=== PATIENT | male | born 1970 | race Caucasian/White ===

== ENCOUNTER → 2017-07-17 | Outpatient (CLI) | payer OTHER ==
[~2017-07-17] MED LIST: /AUGM875TA OR; /ONDA4TA SL; PERC5TAB8 OR
--- NOTE | 2017-07-17 15:37 | REP ---
Clinical: Tendonitis . Technique: Internal rotation, external rotation, and Y view left shoulder . Findings: No acute fracture or dislocation. The acromioclavicular and glenohumeral joints are intact. Minimal cortical irregularity at the acromion process is suggested. No significant inferior osteophyte or periarticular calcifications are identified. Sub acromial space is normal. Surrounding soft tissues are unremarkable. Impression: Mild cortical irregularities at the acromion process. Otherwise normal, age-appropriate left shoulder radiographs. Signed by Michael Garrett MD 07/17/2017 03:28 P
== END ==
LOC: M WUC 15:18
PROVIDERS: ATTEND Family Medicine
DX: M75.82 Other shoulder lesions, left shoulder (principal)

== ENCOUNTER → 2018-08-06 | Outpatient (CLI) | payer OTHER | LOC: M ADAMS 16:34 | DX: M17.11 Unilateral primary osteoarthritis, right knee (principal); M16.11 Unilateral primary osteoarthritis, right hip | CPT/HCPCS: 73502 ==

== ENCOUNTER → 2019-07-21 | Outpatient (REF) | payer OTHER ==
[~2019-07-21] MED LIST changes: -/ONDA4TA SL; +ONDA-1 SL
[2019-07-21 20:29] LABS: HEMATOCRIT 44.1 % (42.0-52.0); HEMOGLOBIN 14.9 g/dl (13.5-17.5); MEAN CORPUSCULAR HEMOGLOBIN 31.5 pg (27.0-33.0); MEAN CORPUSCULAR HGB CONC 33.8 g/dl (32.0-36.5); MEAN CORPUSCULAR VOLUME 93.2 fl (80.0-96.0); PLATELET COUNT, AUTOMATED 157 10^3/uL (150-450); RED BLOOD COUNT 4.73 10^6/uL (4.30-6.10); WHITE BLOOD COUNT 5.8 10^3/uL (4.0-10.0)
[2019-07-21 20:37] LABS: ALBUMIN 4.5 GM/DL (3.2-5.2); ALT/SGPT 51 U/L (12-78); BILIRUBIN,TOTAL 0.6 MG/DL (0.2-1.0); BLOOD UREA NITROGEN 27 MG/DL (7-18); CALCIUM LEVEL 9.4 MG/DL (8.5-10.1); CARBON DIOXIDE LEVEL 25 MEQ/L (21-32); CHLORIDE LEVEL 109 MEQ/L (98-107); CHOLESTEROL LEVEL 174 MG/DL (<200); CHOLESTEROL RISK RATIO 4.833 (<5); CREATININE FOR GFR 0.93 MG/DL (0.70-1.30); GLOMERULAR FILTRATION RATE > 60.0 (>56); GLUCOSE, FASTING 93 MG/DL (70-100); HDL CHOLESTEROL 36 MG/DL (>40); LDL CHOLESTEROL 71 MG/DL (<100); NON-HDL-C 138 MG/DL; POTASSIUM SERUM 4.5 MEQ/L (3.5-5.1); SODIUM LEVEL 141 MEQ/L (136-145); TOTAL PROTEIN 7.2 GM/DL (6.4-8.2); TRIGLYCERIDES LEVEL 335 MG/DL (<150)
[2019-07-27 10:14] LABS: DRVV SCREEN 36.3 SEC
[2019-07-27 10:18] LABS: PTT LUPUS TYPE ANTICOAG SCREEN 0.9 (0-1.2)
[2019-07-28 14:19] LABS: ANTI THROMBIN 3 ANTIGEN IMMUNO 89 % (72-124); ANTI THROMBIN 3 FUNCT ACTIVITY 92 % (75-135); HOMOCYST(E)INE SERUM 9.2 umol/L (0.0-15.0); PROTEIN C FUNCTIONAL ACTIVITY 122 % (73-180); PROTEIN S FUNCTIONAL ACTIVITY 88 % (63-140)
== END ==
LOC: M SFHCADAM 12:18
PROVIDERS: ATTEND Family Medicine
DX: Z12.5 Encounter for screening for malignant neoplasm of prostate (principal); Z82.49 Family history of ischemic heart disease and other diseases of the circulatory system; E78.5 Hyperlipidemia, unspecified
CPT/HCPCS: 80053; 80061; 81240; 83090; 85027; 85300; 85301; 85303; 85305; 85730; G0103

== ENCOUNTER → 2020-03-30 | Outpatient (REF) | payer OTHER ==
[~2020-03-30] MED LIST changes: +ASPI81TA85 PO
[2020-03-30 13:59] LABS: APPEARANCE, URINE CLEAR (CLEAR); BACTERIA, URINE AUTO NEGATIVE (NEGATIVE); BILIRUBIN, URINE AUTO NEGATIVE (NEGATIVE); BLOOD, URINE BLOOD NEGATIVE (NEGATIVE); COLOR, URINE YELLOW (YELLOW); GLUCOSE, URINE (UA) AUTO NEGATIVE (NEGATIVE); KETONE, URINE AUTO NEGATIVE (NEGATIVE); LEUKOCYTE ESTERASE, URINE AUTO NEGATIVE (NEGATIVE); MUCUS, URINE SMALL (NEGATIVE); NITRITE, URINE AUTO NEGATIVE (NEGATIVE); PROTEIN, URINE AUTO NEGATIVE (NEGATIVE); RBC, URINE AUTO 0 /HPF (0-3); SPECIFIC GRAVITY URINE AUTO 1.028 (1.002-1.035); SQUAMOUS EPITHELIAL CELL UR AU 0 /HPF (0-6); UROBILINOGEN, URINE AUTO 0.2 mg/dL (0.0-2.0); WBC, URINE AUTO 0 /HPF (0-3)
[2020-03-30 14:01] LABS: BASO # 0.1 10^3/uL (0.0-0.2); BASO % 0.9 % (0.0-1.0); EOS # 0.3 10^3/uL (0.0-0.5); EOS % 5.6 % (0.0-3.0); HEMATOCRIT 44.9 % (42.0-52.0); HEMOGLOBIN 15.4 g/dl (13.5-17.5); LYMPH # 2.2 10^3/uL (1.5-5.0); MEAN CORPUSCULAR HEMOGLOBIN 31.9 pg (27.0-33.0); MEAN CORPUSCULAR HGB CONC 34.3 g/dl (32.0-36.5); MONO # 0.5 10^3/uL (0.0-0.8); MONO % 8.9 % (0.0-5.0); NEUTROPHILS # 2.7 10^3/uL (1.5-8.5); NEUTROPHILS % 46.1 % (36.0-66.0); PLATELET COUNT, AUTOMATED 153 10^3/uL (150-450); RED BLOOD COUNT 4.83 10^6/uL (4.30-6.10); WHITE BLOOD COUNT 5.9 10^3/uL (4.0-10.0)
[2020-03-30 14:11] LABS: PROTHROMBIN TIME 12.9 SECONDS (11.8-14.0)
[2020-03-30 14:12] LABS: PARTIAL THROMBOPLASTIN TIME 30.9 SECONDS (25.0-38.4)
[2020-03-30 14:16] LABS: HEMOGLOBIN A1c 6.4 %
[2020-03-30 14:34] LABS: ALBUMIN 4.1 GM/DL (3.2-5.2); ALT/SGPT 62 U/L (12-78); BILIRUBIN,TOTAL 0.7 MG/DL (0.2-1.0); BLOOD UREA NITROGEN 27 MG/DL (7-18); CALCIUM LEVEL 9.2 MG/DL (8.5-10.1); CARBON DIOXIDE LEVEL 27 MEQ/L (21-32); CHLORIDE LEVEL 105 MEQ/L (98-107); CREATININE FOR GFR 0.91 MG/DL (0.70-1.30); FERRITIN 297 NG/ML (26-388); FREE T4 0.89 NG/DL (0.76-1.46); GLOMERULAR FILTRATION RATE > 60.0 (>56); GLUCOSE, FASTING 99 MG/DL (70-100); IRON (FE) 109 UG/DL (65-175); PERCENT SATURATION 36.9 % (19.7-50.0); POTASSIUM SERUM 4.8 MEQ/L (3.5-5.1); SODIUM LEVEL 141 MEQ/L (136-145); TOTAL IRON BINDING CAPACITY 295 UG/DL (250-450); TOTAL PROTEIN 7.4 GM/DL (6.4-8.2)
== END ==
LOC: M SFHCADAM 10:40
PROVIDERS: ATTEND Family Medicine
DX: Z01.818 Encounter for other preprocedural examination (principal)

== ENCOUNTER 2020-06-27 05:37 | Day surgery (SDC) | payer OTHER ==
[~2020-06-27] VITALS: Ht 185.4 cm; Wt 100.6 kg
[~2020-06-27 05:37] MED LIST changes: -ASPI81TA85 PO; +ASPI81TA86 PO
[2020-06-27] MEDS ORDERED: ZYRTTAB8 PO (05:49)
[2020-06-27] MEDS ORDERED: ONDANSETRON 4MG/2ML VIAL IV ONE (06:30)
[2020-06-27 06:34] LABS: BASO # 0.1 10^3/uL (0.0-0.2); BASO % 0.8 % (0.0-1.0); EOS # 0.2 10^3/uL (0.0-0.5); EOS % 1.9 % (0.0-3.0); HEMATOCRIT 46.9 % (42.0-52.0); HEMOGLOBIN 15.9 g/dl (13.5-17.5); LYMPH # 2.2 10^3/uL (1.5-5.0); LYMPH % 27.8 % (24.0-44.0); MEAN CORPUSCULAR HEMOGLOBIN 31.1 pg (27.0-33.0); MEAN CORPUSCULAR HGB CONC 33.9 g/dl (32.0-36.5); MEAN CORPUSCULAR VOLUME 91.6 fl (80.0-96.0); MONO # 0.6 10^3/uL (0.0-0.8); MONO % 7.9 % (0.0-5.0); NEUTROPHILS # 4.7 10^3/uL (1.5-8.5); NEUTROPHILS % 61.1 % (36.0-66.0); PLATELET COUNT, AUTOMATED 159 10^3/uL (150-450); RED BLOOD COUNT 5.12 10^6/uL (4.30-6.10); WHITE BLOOD COUNT 7.8 10^3/uL (4.0-10.0)
[2020-06-27] MEDS ORDERED: MORPHINE 4 MG/ML 1ML VIAL/SYRINGE (J2270) IV ONE ×2 (06:45→09:15)
[2020-06-27 06:46] LABS: INR 0.96
[2020-06-27] MEDS ORDERED: ISOVUE-370 76% 100ML VIAL As Ordered ONE (06:46)
[2020-06-27 06:47] LABS: PARTIAL THROMBOPLASTIN TIME 29.3 SECONDS (25.0-38.4)
[2020-06-27 07:14] LABS: ALBUMIN 4.1 GM/DL (3.2-5.2); ALT/SGPT 84 U/L (12-78); BILIRUBIN,DIRECT 0.1 MG/DL (0.0-0.2); BILIRUBIN,TOTAL 0.5 MG/DL (0.2-1.0); BLOOD UREA NITROGEN 20 MG/DL (7-18); CALCIUM LEVEL 9.2 MG/DL (8.5-10.1); CARBON DIOXIDE LEVEL 24 MEQ/L (21-32); CHLORIDE LEVEL 105 MEQ/L (98-107); CK-MB VALUE MASS 1.5 NG/ML (<3.6); CPK CREATINE PHOSPHOKINASE 205 U/L (39-308); CREATININE FOR GFR 1.09 MG/DL (0.70-1.30); GLOMERULAR FILTRATION RATE > 60.0 (>56); GLUCOSE, FASTING 171 MG/DL (70-100); LIPASE 88 U/L (73-393); MB/CK RELATIVE INDEX 0.73 (< OR =4); SODIUM LEVEL 136 MEQ/L (136-145); TOTAL PROTEIN 7.8 GM/DL (6.4-8.2); TROPONIN I < 0.02 NG/ML (< 0.10)
--- NOTE | 2020-06-27 07:53 | REPVR ---
PROCEDURE INFORMATION: Exam: CT Abdomen And Pelvis With Contrast Exam date and time: 06/27/2020 6:37 AM Age: 50 years old Clinical indication: Abdominal pain; Other: Severe; Additional info: Severe abd pain with n/v TECHNIQUE: Imaging protocol: Computed tomography of the abdomen and pelvis with intravenous contrast. Radiation optimization: All CT scans at this facility use at least one of these dose optimization techniques: automated exposure control; mA and/or kV adjustment per patient size (includes targeted exams where dose is matched to clinical indication); or iterative reconstruction. Contrast material: ISO; Contrast volume: 100 ml; Contrast route: INTRAVENOUS (IV); COMPARISON: DX HIP COMPLETE (AP/LAT) 08/06/2018 4:29 PM FINDINGS: Lungs: There is bilateral posterior dependent lung atelectasis. Mediastinal space: The visualized inferior mediastinum is grossly unremarkable. Liver: The liver is enlarged measuring up to 19.1 cm in mid clavicular line and is severely hypoattenuated. There is mild increased density in the gallbladder fossa. There is a small density in the anterior inferior right hepatic lobe on axial image 60 measuring around 1.1 centimetres. Gallbladder and bile ducts: The gallbladder is moderately to significantly distended measuring up to 8.9 x 5.2 centimetres. There is small amount of layering sludge or small stones in the gallbladder. There is no biliary ductal dilatation. Pancreas: Normal. No ductal dilation. Spleen: Normal. No splenomegaly. Adrenals: Normal. No mass. Kidneys and ureters: Normal. No hydronephrosis. Stomach and bowel: Unremarkable. No obstruction. No mucosal thickening. Appendix: No evidence of appendicitis. Intraperitoneal space: Unremarkable. No free air. No significant fluid collection. Vasculature: Unremarkable. No abdominal aortic aneurysm. Lymph nodes: There is nonspecific shotty small bowel mesenteric lymph nodes. Bladder: Unremarkable as visualized. Reproductive: The prostate gland is enlarged measuring 5.5 cm in transverse dimensions. Bones/joints: The patient is status post total right hip replacement with grossly intact prostheses. Streak artifacts from hip prosthesis limit the evaluation of the pelvis. Soft tissues: Unremarkable. IMPRESSION: 1. No CT evidence of bowel obstruction. 2. Distended gallbladder-near hydropic with small amount of layering sludge or stones. Correlate with symptoms and LFTs. If indicated ultrasound of the gallbladder or HIDA may be obtained to exclude cholecystitis. 3. Minimal mesenteric haziness with shotty mesenteric lymph nodes is nonspecific. Correlate clinically for enteritis the. 4. Hepatomegaly with fatty infiltration of the liver possibly with fatty sparing or hyperemia in the gallbladder fossa. 5. Focal area of ill-defined density possibly enhancement in the anterior inferior right hepatic lobe for which further evaluation with MRI with contrast is suggested. 6. Enlarged prostate gland. Correlate with clinical history, physical exam and PSA level. Electronically signed by: Phoenix Bruno On 06/27/2020 07:53:50 AM
--- NOTE | 2020-06-27 09:04 | REPVR ---
PROCEDURE INFORMATION: Exam: US Abdomen, Limited; Right Upper Quadrant Exam date and time: 06/27/2020 8:56 AM Age: 50 years old Clinical indication: Abdominal pain; Epigastric; Additional info: Severe abd pain TECHNIQUE: Imaging protocol: US abdomen. Real time ultrasound with image documentation. Limited exam focused on the right upper quadrant. COMPARISON: CT ABD/PEL W/IV CONTRAST ONLY 06/27/2020 7:08 AM FINDINGS: Liver: The liver demonstrates increased echogenicity with decreased visualization of periportal fat with severe sound attenuation. Gallbladder: Layering small gallstones and sludge are noted posteriorly in the distended gallbladder. The gallbladder transverse lumen measures 5.3 cm. No gallbladder wall thickening or pericholecystic fluid identified. The gallbladder wall measures 2.7 mm. The sonographic Nails sign is negative. Common bile duct: The common bile duct measures 3.8 mm. No ductal calculi as visualized. Pancreas: The pancreas is obscured by bowel gas. Right kidney: The right kidney measures 12.7 x 5.0 x 6.4 cm. Unremarkable. IMPRESSION: 1. Fatty infiltration of the liver. 2. Cholelithiasis with gallbladder luminal distension. Electronically signed by: Les Shah On 06/27/2020 09:05:02 AM
[2020-06-27] MEDS ORDERED: KETOROLAC 30 MG/ML 1ML VIAL IV ONE (10:30)
[2020-06-27] MEDS ORDERED: HYDROMORPHONE HCL 0.5 MG/ 0.5 ML SYRINGE (J1170 PER 1) IV ONE (11:00)
[2020-06-27] MEDS: LR 1,000 ML IV SCH ×2 (13:23→23:20)
[2020-06-27] MEDS ORDERED: MORPHINE 2 MG/ML 1ML VIAL (J2270) IV PRN (13:30)
[2020-06-27] MEDS ORDERED: KETOROLAC 30 MG/ML 1ML VIAL IV PRN (13:30)
[2020-06-27] MEDS ORDERED: ONDANSETRON 4MG/2ML VIAL IV PRN ×2 (13:30→22:00)
[2020-06-27] MEDS ORDERED: CETI5TA PO (13:53)
[2020-06-27] MEDS ORDERED: MULT-40 PO (13:53)
[2020-06-27] MEDS ORDERED: MORPHINE 4 MG/ML 1ML VIAL/SYRINGE (J2270) As Ordered ONE (13:56)
[2020-06-27] MEDS ORDERED: ZOSYN 3.375GM VIAL (J2543) As Ordered ONE ×2 (13:56→20:03)
[2020-06-27] MEDS ORDERED: ONDANSETRON 4MG/2ML VIAL As Ordered ONE ×2 (13:57→20:12)
[2020-06-27] MEDS: PIPERACILLIN/TAZOBACTAM SOD 3.375 GM in D5W MINI-BAG PLUS 50 ML IV SCH ×2 (14:05→23:41)
[2020-06-27] MEDS: MORPHINE 4 MG/ML 1ML VIAL/SYRINGE (J2270) IV PRN ×2 (14:28→17:19)
[2020-06-27 16:30] VITALS: BP 154/80
[2020-06-27] MEDS ORDERED: BUPIVACAINE HCL 0.25% 30ML VIAL As Ordered ONE (19:16)
[2020-06-27] MEDS ORDERED: fentaNYL 100 MCG/2 ML INJECTION (J3010) As Ordered ONE (20:12)
[2020-06-27] MEDS ORDERED: propofoL 200 MG/20 ML VIAL As Ordered ONE (20:12)
[2020-06-27] MEDS ORDERED: SUGAMMADEX SODIUM 500 MG/5 ML VIAL (BRIDION) As Ordered ONE (20:12)
[2020-06-27] MEDS ORDERED: LIDOCAINE 2% 100MG/5ML SDV (FOR ANES.) As Ordered ONE (20:12)
[2020-06-27] MEDS ORDERED: ACETAMINOPHEN 1000MG 100ML IV BTL (OFIRMEV) (J0131 PER 10MG) As Ordered ONE (20:12)
[2020-06-27] MEDS ORDERED: MIDAZOLAM INJ 2MG/2ML VIAL (J2250 PER 1MG) As Ordered ONE (20:12)
[2020-06-27] MEDS ORDERED: ROCURONIUM BROMIDE 50 MG/5 ML VIAL As Ordered ONE (20:12)
[2020-06-27] MEDS ORDERED: KETOROLAC 60MG 2ML VIAL As Ordered ONE (20:12)
[2020-06-27] MEDS ORDERED: dexameTHASONE 4 MG/ML 1ML VIAL (J1100 PER 1MG) As Ordered ONE (20:13)
[2020-06-27] MEDS ORDERED: PHENYLephrine HCL 500 MCG/5 ML (100MCG/ML) SYRINGE (J2370) As Ordered ONE (20:14)
[2020-06-27] MEDS ORDERED: ePHEDrine SULFATE 25 MG/5 ML(5MG/ML) SYRINGE As Ordered ONE (20:27)
[2020-06-27] MEDS ORDERED: IBUPROFEN 600MG TAB PO PRN (22:00)
[2020-06-27] MEDS ORDERED: fentaNYL 100 MCG/2 ML INJECTION (J3010) IV PRN (22:00)
[2020-06-27] MEDS ORDERED: oxyCODONE 5MG TAB PO PRN (22:00)
[2020-06-27] MEDS ORDERED: ACETAMINOPHEN TAB 650MG DOSE (2X325MG) PO PRN (22:00)
[2020-06-27] MEDS ORDERED: NORCO, ANEXSIA 5/325MG TABLET (HYDROcodone/ACETAMINOPHEN) PO PRN (22:00)
[2020-06-27] MEDS ORDERED: LR 1,000 ML IV SCH (22:00)
[2020-06-27 22:55] VITALS: BP 137/77
[2020-06-27 23:30] VITALS: BP 133/75
[2020-06-28] VITALS (7 sets, daily range): BP systolic 124–134; BP diastolic 73–81
[2020-06-28] MEDS: PIPERACILLIN/TAZOBACTAM SOD 3.375 GM in D5W MINI-BAG PLUS 50 ML IV SCH ×3 (03:31→14:38)
[2020-06-28] MEDS: LR 1,000 ML IV SCH ×2 (05:23→12:51)
[2020-06-28 07:04] LABS: BASO % 0.1 % (0.0-1.0); HEMATOCRIT 44.7 % (42.0-52.0); HEMOGLOBIN 15.3 g/dl (13.5-17.5); LYMPH # 1.1 10^3/uL (1.5-5.0); LYMPH % 13.4 % (24.0-44.0); MEAN CORPUSCULAR HEMOGLOBIN 31.5 pg (27.0-33.0); MEAN CORPUSCULAR HGB CONC 34.2 g/dl (32.0-36.5); MONO # 0.5 10^3/uL (0.0-0.8); MONO % 5.6 % (0.0-5.0); NEUTROPHILS # 6.7 10^3/uL (1.5-8.5); NEUTROPHILS % 80.5 % (36.0-66.0); PLATELET COUNT, AUTOMATED 147 10^3/uL (150-450); RED BLOOD COUNT 4.86 10^6/uL (4.30-6.10); WHITE BLOOD COUNT 8.3 10^3/uL (4.0-10.0)
[2020-06-28 07:24] LABS: ALBUMIN 3.7 GM/DL (3.2-5.2); ALT/SGPT 122 U/L (12-78); BILIRUBIN,TOTAL 0.8 MG/DL (0.2-1.0); BLOOD UREA NITROGEN 17 MG/DL (7-18); CALCIUM LEVEL 9.1 MG/DL (8.5-10.1); CARBON DIOXIDE LEVEL 28 MEQ/L (21-32); CHLORIDE LEVEL 102 MEQ/L (98-107); CREATININE FOR GFR 1.14 MG/DL (0.70-1.30); GLOMERULAR FILTRATION RATE > 60.0 (>56); GLUCOSE, FASTING 167 MG/DL (70-100); POTASSIUM SERUM 4.4 MEQ/L (3.5-5.1); SODIUM LEVEL 137 MEQ/L (136-145)
--- NOTE | 2020-07-18 11:02 | ECGEPIP ---
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
--- NOTE | 2020-08-07 10:43 | RO ---
DATE OF OPERATION: 06/27/2020. PREOPERATIVE DIAGNOSIS: Cholelithiasis with acute cholecystitis. POSTOPERATIVE DIAGNOSIS: Cholelithiasis with acute cholecystitis. PROCEDURE: Laparoscopic cholecystectomy. SURGEON: Yuan Naidu M.D. HIDE BUYER: ANESTHESIA: General INDICATIONS FOR PROCEDURE: Patient is a 50-year-old man who was awakened at approximately 1:30 in the morning on the 27 of June with epigastric pain. 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 He underwent evaluation with some lab work. He was found to have tenderness particularly in the right upper quadrant. A CT scan showed a distended gallbladder with some gallstones. There were no other evident significant abnormalities. An ultrasound also confirmed gallbladder distention with stones. His history and exam and laboratory studies are felt to be consistent with acute cholecystitis and he is now for a laparoscopic cholecystectomy. DESCRIPTION OF OPERATIVE PROCEDURE: The patient was brought to the operating room and placed on the table in a supine position. He was placed under general endotracheal anesthesia. The patients abdomen was prepped and draped in a sterile fashion. A 0.25% Marcaine was infiltrated at each of the trocar sites prior to insertion. A short supraumbilical midline incision was made. This was deepened to the fascia. A Veress needle was inserted and the abdomen was inflated with carbon dioxide gas. The fascia was incised and an 11 mm port was placed at the midline. The laparoscope was inserted. Initial examination showed that the gallbladder was obscured beneath the liver by overlying omental fat. The liver appeared perhaps slightly pale in color. A 5 mm port was placed in the left upper quadrant. A grasper was inserted and the omentum was displaced inferiorly, which revealed the markedly distended and inflamed gallbladder in the normal position. The gallbladder was clearly tensely distended with patchy yellow-green discoloration and areas of reddish inflammation. Two 5 mm ports were placed in the right upper quadrant. Patient was tilted to a reverse Trendelenburg positive and rolled slightly to the left. Graspers were inserted. The gallbladder was aspirated of a large amount of bile to allow it to be grasped. The gallbladder was then elevated. There was clearly some pericholecystic edema around the gallbladder neck. The hook cautery was used to dissect through the pericholecystic tissues. The cystic duct and the cholecystic artery were both clearly identified. Both structures were then doubly clipped with Hemoclips and divided. The gallbladder was then dissected free from the gallbladder bed using cautery dissection. The gallbladder was placed in an Endopouch. The right upper quadrant was irrigated and inspected and there was no evidence of any bleeding or bile leak. The patient was returned to a flat position. The abdomen was deflated and the trocars were removed. The gallbladder was recovered through the supraumbilical site. This required extending the fascial incision slightly at the midline. The gallbladder was sent for permanent pathology. The fascia at the supraumbilical site was closed with interrupted simple sutures of 2-0 Vicryl. The skin incisions were all closed with buried 4-0 Vicryl and Steri-Strips. Light dressings were applied. The patient tolerated the procedure well without apparent complications. He was awakened in the Operating Room, extubated and moved to the Recovery Room in stable condition. ORALIA
--- NOTE | 2020-08-07 10:47 | IPN ---
DATE: 06/28/2020 HISTORY OF PRESENT ILLNESS: Patient was admitted yesterday with signs and symptoms of acute cholecystitis. He underwent a laparoscopic cholecystectomy, which ended approximately 9:30 p.m. on the . He has done well since then. He denies any significant abdominal discomfort. He is tolerating a diet. PHYSICAL EXAMINATION: VITAL SIGNS: Show that he has been afebrile with pulse in 60s to 70s and a normal blood pressure. INTAKE & OUTPUT: Shows excellent oral intake and urine output. GENERAL: The patient is alert and oriented and appears comfortable. HEART: Unremarkable. LUNGS: Unremarkable. ABDOMEN: Perhaps minimally distended. His dressings are clean and dry. He has bowel sounds present and the abdomen is soft with some expected discomfort on palpation. LABORATORY STUDIES: This morning show white count 8, hemoglobin 15, hematocrit 45 and platelet count 147,000. Differential count shows 80% neutrophils with 13% lymphocytes and 6% monocytes. Chemistry profile showed minimal elevation of the AST and ALT to 69 and 122 respectively and otherwise his labs were unremarkable. IMPRESSION: Patient is doing very well now approximately 12 hours to 16 hours postop from his laparoscopic cholecystectomy for acute cholecystitis. He appears ready for discharge. PLAN: Patient will be discharged. He will not be provided with any prescriptions. He can take [id number] medications as needed. He can take a diet as tolerated, but was warned to trial fatty or rich foods somewhat before diving in in case he does not tolerate these as well. He can shower 24 hours after the surgery. He should try to keep the Steri-Strips in place. He should call my office for any problems, but follow-up in approximately two weeks. ORALIA
== END 2020-06-28 16:55 | disposition home or self-care (01) ==
LOC: M ED 05:37 → M SDC 05:38 → M MSPAV 16:20 → M SDC 06-28 16:55
PROVIDERS: ATTEND Surgery
DX: K80.10 Calculus of gallbladder with chronic cholecystitis without obstruction (principal)
CPT/HCPCS: 36415; 47562; 74177; 76705; 80047; 80048; 80053; 80076; 81001; 82550; 82553; 83690; 84484; 85025; 85610; 85730; 88304; 93005; 93041; 94760; 96365; 96366; 96375; 96376; 99285; J0131; J1100; J1170; J1885; J2250; J2270; J2370; J2405; J2543; J3010; Q9967; U0002

== ENCOUNTER → 2021-01-04 | Outpatient (CLI) | payer OTHER ==
[~2021-01-04] MED LIST changes: +CETI5TA PO; +MULT-40 PO; +ZYRTTAB8 PO
[2021-01-04 10:11] LABS: BASO % 0.9 % (0.0-1.0); EOS # 0.1 10^3/uL (0.0-0.5); EOS % 1.7 % (0.0-3.0); HEMATOCRIT 48.1 % (42.0-52.0); HEMOGLOBIN 16.3 g/dl (13.5-17.5); LYMPH # 1.6 10^3/uL (1.5-5.0); LYMPH % 34.3 % (24.0-44.0); MEAN CORPUSCULAR HEMOGLOBIN 31.3 pg (27.0-33.0); MEAN CORPUSCULAR HGB CONC 33.9 g/dl (32.0-36.5); MEAN CORPUSCULAR VOLUME 92.5 fl (80.0-96.0); MONO # 0.3 10^3/uL (0.0-0.8); MONO % 7.4 % (2.0-8.0); NEUTROPHILS # 2.5 10^3/uL (1.5-8.5); PLATELET COUNT, AUTOMATED 161 10^3/uL (150-450); WHITE BLOOD COUNT 4.6 10^3/uL (4.0-10.0)
[2021-01-04 10:20] LABS: APPEARANCE, URINE CLEAR (CLEAR); BACTERIA, URINE AUTO NEGATIVE (NEGATIVE); BILIRUBIN, URINE AUTO NEGATIVE (NEGATIVE); BLOOD, URINE BLOOD NEGATIVE (NEGATIVE); COLOR, URINE YELLOW (YELLOW); GLUCOSE, URINE (UA) AUTO NEGATIVE (NEGATIVE); KETONE, URINE AUTO NEGATIVE (NEGATIVE); LEUKOCYTE ESTERASE, URINE AUTO NEGATIVE (NEGATIVE); MUCUS, URINE SMALL (NEGATIVE); NITRITE, URINE AUTO NEGATIVE (NEGATIVE); PROTEIN, URINE AUTO NEGATIVE (NEGATIVE); RBC, URINE AUTO 1 /HPF (0-3); SPECIFIC GRAVITY URINE AUTO 1.023 (1.002-1.035); SQUAMOUS EPITHELIAL CELL UR AU 0 /HPF (0-6); UROBILINOGEN, URINE AUTO 0.2 mg/dL (0.0-2.0); WBC, URINE AUTO 1 /HPF (0-3)
[2021-01-04 10:30] LABS: HEMOGLOBIN A1c 6.3 %
[2021-01-04 10:39] LABS: BLOOD UREA NITROGEN 22 MG/DL (7-18); CALCIUM LEVEL 9.5 MG/DL (8.5-10.1); CARBON DIOXIDE LEVEL 30 MEQ/L (21-32); CHLORIDE LEVEL 105 MEQ/L (98-107); CREATININE FOR GFR 1.15 MG/DL (0.70-1.30); GLOMERULAR FILTRATION RATE > 60.0 (>56); GLUCOSE, FASTING 148 MG/DL (70-100); POTASSIUM SERUM 4.8 MEQ/L (3.5-5.1); SODIUM LEVEL 138 MEQ/L (136-145)
[2021-01-04 10:51] LABS: MALB URINE SIEMENS 14.9 MG/L; MAU/CREAT RATIO 7.9 MCG/MG (0.0-30.0); TOTAL PROTEIN,RANDOM URINE 19.2 MG/DL (0.0-12.0)
[2021-01-04 12:03] LABS: CREATININE CLEARANCE, URINE 167.2 ML/MIN (85-125); CREATININE, SERUM 1.2 MG/DL (0.6-1.3); TOTAL PROTEIN 24 HOUR URINE 161.5 MG/24HR (50-150); URINE TOTAL PROTEIN 9.5 MG/DL (0-12)
== END ==
LOC: M WUC 08:07
PROVIDERS: ATTEND Internal Medicine Nephrology
DX: Z00.5 Encounter for examination of potential donor of organ and tissue (principal)

== ENCOUNTER → 2023-11-05 | Outpatient (REF) | payer OTHER ==
[~2023-11-05] MED LIST changes: +ACET325C5 PO; +FLOM0.4C39 PO; +HYDR-3713 PO; +IBUP-1022 PO; +ONDA4TAB6 PO
[2023-11-05 15:46] LABS: APPEARANCE, URINE CLEAR (CLEAR); BACTERIA, URINE AUTO NEGATIVE (NEGATIVE); BILIRUBIN, URINE AUTO NEGATIVE (NEGATIVE); BLOOD, URINE BLOOD NEGATIVE (NEGATIVE); COLOR, URINE YELLOW (YELLOW); GLUCOSE, URINE (UA) AUTO NEGATIVE (NEGATIVE); KETONE, URINE AUTO NEGATIVE (NEGATIVE); LEUKOCYTE ESTERASE, URINE AUTO NEGATIVE (NEGATIVE); NITRITE, URINE AUTO NEGATIVE (NEGATIVE); PROTEIN, URINE AUTO NEGATIVE (NEGATIVE); RBC, URINE AUTO 0 /HPF (0-3); SPECIFIC GRAVITY URINE AUTO 1.021 (1.002-1.035); SQUAMOUS EPITHELIAL CELL UR AU 0 /HPF (0-6); UROBILINOGEN, URINE AUTO 0.2 mg/dL (0.0-2.0); WBC, URINE AUTO 1 /HPF (0-3)
== END ==
LOC: M SMT 15:31
PROVIDERS: ATTEND Urology
DX: N20.1 Calculus of ureter (principal)

== ENCOUNTER → 2023-12-26 | Outpatient (CLI) | payer OTHER ==
[2023-12-26 11:48] LABS: HEMOGLOBIN A1c 6.2 % (4.0-6.0)
[2023-12-26 11:54] LABS: CHOLESTEROL RISK RATIO 4.21 (<5); HDL CHOLESTEROL 43.9 MG/DL (>40); LDL CHOLESTEROL 102.3 MG/DL (<100); NON-HDL-C 141.1 MG/DL; PSA SCREENING 1.09 NG/ML (< 4.00)
== END ==
LOC: M WUC 08:14
PROVIDERS: ATTEND Family Medicine
DX: E78.5 Hyperlipidemia, unspecified (principal); Z12.5 Encounter for screening for malignant neoplasm of prostate; Z13.1 Encounter for screening for diabetes mellitus
CPT/HCPCS: 36415; 80061; 83036; G0103

== ENCOUNTER 2024-02-03 07:48 | Day surgery (SDC) | payer OTHER ==
[~2024-02-03] VITALS: Ht 185.4 cm; Wt 92.4 kg
[~2024-02-03 07:48] MED LIST changes: +ASPI81CH33 PO
[2024-02-03] MEDS: NS 1,000 ML IV ONE (08:37)
[2024-02-03] MEDS ORDERED: propofoL 500 MG/50 ML VIAL As Ordered ONE (09:52)
[2024-02-03] MEDS ORDERED: LIDOCAINE 2% 100MG/5ML SDV (FOR ANES.) As Ordered ONE (09:53)
[2024-02-03 10:35] VITALS: TEMP 98.6
[2024-02-03 11:05] VITALS: BP 134/60; O2SAT 96
== END 2024-02-03 11:04 | disposition home or self-care (01) ==
LOC: M OPP 07:48
PROVIDERS: ATTEND Internal Medicine Gastroenterology
DX: Z12.11 Encounter for screening for malignant neoplasm of colon (principal); Z86.010 Personal history of colon polyps; K63.5 Polyp of colon; K64.8 Other hemorrhoids; K64.4 Residual hemorrhoidal skin tags; K57.30 Diverticulosis of large intestine without perforation or abscess without bleeding; Z79.02 Long term (current) use of antithrombotics/antiplatelets; Z79.1 Long term (current) use of non-steroidal anti-inflammatories (NSAID); Z79.899 Other long term (current) drug therapy

== ENCOUNTER → 2024-09-03 | Outpatient (CLI) | payer OTHER ==
[~2024-09-03] MED LIST changes: +ONDA-282 PO; -ONDA4TAB6 PO
== END ==
LOC: M RAD 12:01
PROVIDERS: ATTEND Family Medicine
DX: M79.89 Other specified soft tissue disorders (principal)

== ENCOUNTER → 2024-09-06 | Outpatient (CLI) | payer OTHER | LOC: M WUC 13:15 | PROVIDERS: ATTEND Family Medicine | DX: M76.31 Iliotibial band syndrome, right leg (principal); Z96.641 Presence of right artificial hip joint ==

== ENCOUNTER → 2025-06-18 | Outpatient (CLI) | payer OTHER ==
[~2025-06-18] MED LIST changes: -FLOM0.4C39 PO; +TAMS-18 PO
[2025-06-18 12:00] LABS: PLATELET COUNT, AUTOMATED 149 10^3/uL (150-450)
[2025-06-18 12:13] LABS: ESTIMATED AVERAGE GLUCOSE 143.0 MG/DL (60-110)
[2025-06-18 12:33] LABS: ALT/SGPT 44 U/L (7.0-40); AST/SGOT 44 U/L (<34); CALCIUM LEVEL 8.7 MG/DL (8.5-10.1); CARBON DIOXIDE LEVEL 24 MMOL/L (20-31); CHLORIDE LEVEL 105 MMOL/L (98-107); CHOLESTEROL LEVEL 184 MG/DL (<200); CHOLESTEROL RISK RATIO 4.06 (<5); CREATININE FOR GFR 0.95 MG/DL (0.70-1.30); GLOMERULAR FILTRATION RATE > 90.0 (>56); LDL CHOLESTEROL 125.7 MG/DL (<100); NON-HDL-C 138.7 MG/DL; POTASSIUM SERUM 4.5 MMOL/L (3.5-5.1); SODIUM LEVEL 140 MMOL/L (136-145); TRIGLYCERIDES LEVEL 65 MG/DL (<150)
== END ==
LOC: M LAB 09:05
PROVIDERS: ATTEND Family Medicine
DX: D12.6 Benign neoplasm of colon, unspecified (principal); E78.5 Hyperlipidemia, unspecified; Z13.1 Encounter for screening for diabetes mellitus